=== PATIENT | male | born 1950 | race Caucasian/White ===

== ENCOUNTER 2019-07-10 05:04 | Emergency (ER) | payer OTHER, SELFPAY ==
--- NOTE | ~2019-07-10 | XR_ITS ---
XR chest 2V DATE: 07/10/2019 06:21 INDICATION: Chest pain TECHNIQUE: AP and lateral views COMPARISON: None FINDINGS: Heart size is normal. Is aortic calcification and mild tortuosity. No hilar or mediastinal enlargement. No pulmonary infiltrate or consolidation, pleural effusion or pulmonary vascular congestion or pneumo thorax is detected. Multiple old healed right rib fracture deformities. Apparently ununited right proximal humeral fractu re deformity. Diffuse osteopenia. Apparent burst fracture deformity of a mid to upper lumbar vertebra. IMPRESSION: No active cardiopulmonary disease Apparently old right rib, right humeral and approximately L2 burst fracture deformities Reviewed, dictated and finalized at location A. IMPRESSION: No active cardiopulmonary disease Apparently old right rib, right humeral and approximately L2 burst fracture def ormities
--- NOTE | 2019-07-10 05:10 | ED.GENADULT ---
HPI - General Adult General Chief complaint: Chest Pain Stated complaint: Cocain OD? Time Seen by Provider: 07/10/19 05:10 Source: patient Mode of arrival: wheelchair Limitations: no limitations History of Present Illness HPI narrative: Patient is a 69-year-old male who presents for evaluation of chest pain. Patient reports that he is currently very depressed, got into an argument with 1 of the supervisors at the site he lives at which is what he calls a room and home and this person accused him of writing a bad check per the patient, patient became very depressed and has been using crack cocaine since yesterday. Patient also drank alcohol yesterday. Patient has a history of alcohol abuse and is a former alcoholic, but states he had been able to abstain for quite some time. Patient reports that he is suicidal with vague thoughts to end his life. No access to firearms. No history of suicide attempt in the past. Patient is currently reporting chest pain over the left side of his chest, earlier patient reported nausea, shortness of breath and feeling sweaty, but patient denies any of those symptoms currently. Chest pain is currently mild. No ripping or tearing sensation to the pain, no lower flank pain. Patient does have an SC over 15 years ago, states he never had a stent placed and is not currently anticoagulated. Related Data Allergies Allergy/AdvReac Type Severity Reaction Status Date / Time No Known Allergies Allergy Verified 07/10/19 05:50 Review of Systems Review of Systems: Narrative: CONSTITUTIONAL: Denies fever, chills, or sweats. CARDIOVASCULAR: Reports chest pain, palpitations, denies edema RESPIRATORY: Denies cough or dyspnea. GASTROINTESTINAL: Denies abdominal pain, nausea, vomiting, or diarrhea. GENITOURINARY: Denies dysuria or hematuria. SKIN: Denies rash or itching. MUSCULOSKELETAL: Denies back pain, joint pain, or myalgia. NEUROLOGIC: Denies headache, numbness, or weakness. PSYCHIATRIC: Reports anxiety and depression [facility] Past Medical History Medical History (Updated 07/10/19 @ 05:30 by Gemma Gilliam MD) Acid reflux Alcoholism Hypertension Myocardial infarction Social History Social History (Updated 07/10/19 @ 05:31 by Gemma Gilliam MD) Smoking status: Former smoker Tobacco type: cigarettes Alcohol intake: current Substance use: current Substance use type: crack/cocaine Living arrangements: alone Gender identity (if verbalized by the patient): Male Exam Narrative: Exam Narrative: GENERAL: Awake, alert, conversant, slightly disheveled appearing HEAD: Normocephalic, atraumatic. EYES: PERRLA and EOMI. ENT: Nares clear, no rhinorrhea or epistaxis. Mucous membranes moist. NECK: Supple. CHEST: No respiratory distress, breathing even and non labored HEART: Regular rate, sinus rhythm ABDOMEN:Non distended, non tender EXTREMITIES: Normal range of motion. No edema. SKIN: Warm, dry, no rash. NEURO:No focal deficits. Alert and oriented x3 Course Course Emergency Course: Pt presented for suicidal thoughts and intent to harm himself after using crack cocaine last night. Pt currentl without pain, and very anxious appearing. Pt with ekg without acute ischemic changes. Pt well appearing, normal vital signs. Pt with concerning history, but will also require psychiatric evaluation. If patient with elevated troponin, will be admitted. Pt pending labs, imaging studies and reassessment at this time. Pt signed out to oncoming physician waiting these results. Vital Signs Vital signs: Vital Signs Temperature 36.5 C 07/10/19 05:11 Pulse Rate 90 07/10/19 05:11 Respiratory Rate 20 07/10/19 05:11 Blood Pressure 155/96 H 07/10/19 05:11 Pulse Oximetry 98 07/10/19 05:11 Temperature 36.5 C 07/10/19 05:11 Pulse Rate 82 07/10/19 05:45 Respiratory Rate 20 07/10/19 05:11 Blood Pressure 155/96 H 07/10/19 05:11 Pulse Oximetry 98 07/10/19 05:11 Medical Decision
[2019-07-10 05:11] VITALS: BP 155/96; PULSE 90; RESP 20; TEMP 36.5; O2SAT 98
[2019-07-10] MEDS: ASPIRIN 81 MG CHEWABLE TABLET 324 MG PO (05:30)
--- NOTE | 2019-07-10 05:37 | ECG_ITS ---
Measurements Intervals [place] Rate: 79 P: 30 IN: 149 QRS: 11 QRSD: 82 T: 10 QT: 364 QTc: 418 Interpretive Statements SINUS RHYTHM MINIMAL Q WAVES- INFERIOR LEADS BORDERLINE T WAVE ABNORMALITY- INFERIOR LEADS BORDERLINE ECG Electronically Signed On 07-10-2019 8:08:00 CDT by Jaron Franco D.O.
[2019-07-10 05:45] VITALS: PULSE 82
--- NOTE | 2019-07-10 05:56 | PC.NURSE ---
Patient stated hes been at [employer] smoking crack coccaine last night and early this morning, complaining of heart palpitations and right sided chest pain. After triage, patient told ED Physician he was depressed and suicidal. Patient told me he doesn't have a place to go back to to live because his landlord stated the patient wrote a bad check and still owes rent. Patient stated he wanted to over dose on his blood pressure medications. Patient is cooperative an also asked for help for his drug addiction. Patient placed in a gown and belongings at nursing desk.Sitter outside room.
[2019-07-10 06:16] LABS: Basophils Absolute Auto 0.1 K/mm3 (0.0-0.1); Basophils Percent Auto 0.8 % (0.2-1.2); Eosinophils Absolute Auto 0.3 K/mm3 (0-0.3); Eosinophils Percent Auto 3.2 % (0-4.4); Hemoglobin 13.2 g/dL (14.0-18.0); Immature Granulocyte Absolute 0.03 K/mm3 (0.00-0.031); Immature Granulocyte Percent A 0.3 % (0-0.5); Lymphocytes Absolute Auto 1.69 K/mm3 (0.9-3.2); Lymphocytes Percent Auto 16.8 % (18.3-44.2); Mean Corpuscular HGB Conc 33.8 g/dl (32-36); Mean Corpuscular Hemoglobin 33.9 pg (26-34); Mean Corpuscular Volume 100.3 fl (80-100); Mean Platelet Volume 9.3 fl (7.4-10.4); Monocytes Absolute Auto 0.9 K/mm3 (0.1-0.6); Neutrophils Percent Auto 69.9 % (45.5-73.1); Platelet Count Result 242 k/mm3 (150-375); Red Blood Count 3.89 M/mm3 (4.6-6.20); Red Cell Distribution Width 13.9 % (11.5-14.5)
[2019-07-10 06:20] LABS: Add Urine Microscopic? YES; Appearance Urine Clear (Clear); Bilirubin Urine Negative (Negative); Blood Urine 1+ (Negative); Color Urine Colorless (Yellow); Glucose Urine UA Negative (Negative); Ketones Urine Negative (Negative); Leukocyte Esterase Ur Negative LEU/UL (Negative); Nitrate Urine Negative (Negative); Protein Urine Negative (Negative); Specific Grav Ur 1.008 (1.001-1.035); Squamous Epithelial Cell Urine Rare /hpf (Few); Urobilinogen Urine Negative mg/dL (<2.0)
[2019-07-10 06:22] VITALS: BP 145/101; PULSE 80; RESP 18; O2SAT 97
[2019-07-10 06:28] LABS: Blood Urea Nitrogen 11 mg/dL (9-20); Calcium 8.7 mg/dL (8.4-10.2); Carbon Dioxide 27 mmol/L (22-30); Chloride 97 mmol/L (98-107); Estimated Glomerular Filt Rate > 60; Glucose 98 mg/dL (75-110); Potassium 3.5 mmol/L (3.4-5.0); Sodium 134 mmol/L (137-145)
[2019-07-10 06:29] LABS: Ethanol < 10 mg/dL (<10)
[2019-07-10 06:35] LABS: Amphetamine Screen Urine Negative (Negative); Barbiturate Screen Urine Negative (Negative); Benzodiazepines Screen Urine Negative (Negative); Cannabinoid Screen Urine Negative (Negative); Cocaine Screen Urine Positive (Negative); Methadone Screen Urine Negative (Negative); Opiate Screen Urine Negative (Negative); Phencyclidine Screen Urine Negative (Negative)
[2019-07-10 06:44] LABS: Troponin I < 0.012 ng/mL (0.000-0.034)
--- NOTE | 2019-07-10 06:56 | PC.NURSE ---
Left a voice mail with [facility] [phone] about patient to come and evaluate.
--- NOTE | 2019-07-10 07:07 | PC.NURSE ---
Spoke with Paul at [facility] aout patient eval. ETA 90 mins.
[2019-07-10 07:13] LABS: INR 1.1; Prothrombin Time 13.7 Seconds (11.1-14.7)
[2019-07-10 07:14] LABS: Partial Thromboplastin Time 33.6 SECONDS (22.3-36.8)
[2019-07-10 08:03] VITALS: BP 140/99; PULSE 74; RESP 16; O2SAT 98
[2019-07-10 08:32] LABS: Troponin I < 0.012 ng/mL (0.000-0.034)
[2019-07-10] MEDS: ACETAMINOPHEN 500 MG TABLET 1000 MG PO (09:21)
[2019-07-10 10:53] VITALS: BP 149/98; PULSE 86; RESP 16; O2SAT 96
[2019-07-10 11:28] VITALS: BP 152/101; PULSE 81; RESP 16; O2SAT 98
== END 2019-07-10 13:00 ==
PROVIDERS: Emergency Medicine; Emergency Provider Emergency Medicine
DX: F14.90 Cocaine use, unspecified, uncomplicated (principal); R07.9 Chest pain, unspecified; R45.851 Suicidal ideations; I25.2 Old myocardial infarction; K21.9 Gastro-esophageal reflux disease without esophagitis; I10 Essential (primary) hypertension; Z87.891 Personal history of nicotine dependence; R94.31 Abnormal electrocardiogram [ECG] [EKG]
CPT/HCPCS: 36415; 71046; 80048; 80307; 81001; 84443; 84484; 85025; 85610; 85730; 93005; 99285; A9270